=== PATIENT | male | born 1990 | race Caucasian/White ===

== ENCOUNTER 2022-09-17 08:55 | Emergency (ER) | payer OTHER, SELFPAY ==
[2022-09-17 09:10] VITALS: BP 125/85; PULSE 85; RESP 14; TEMP 36.1; O2SAT 100
--- NOTE | 2022-09-17 09:13 | ED.URI ---
HPI - URI/Sore Throat General Chief Complaint: Upper Respiratory Infection Stated Complaint: tight chest cough Time Seen by Provider: 09/17/22 09:13 Source: patient and RN notes reviewed History of Present Illness HPI Narrative: Patient is a 31-year-old male who presents to the Urgent Care with complaints of a tight chest, cough and wheezing. Patient states it started last week, he got better for couple days and then worse again. Patient denies any fever, nausea, vomiting. Denies of any ill exposures. States that he had 2- COVID test at home. Patient has been taking DayQuil, NyQuil and D congestion. No other acute complaints. No acute distress noted. Patient aware of the plan of care. Some parts of this dictation were generated by voice recognition software and may contain typographical and/or grammatical inaccuracies. Related Data Home Medications Medication Instructions Recorded Confirmed bupropion HCl 150 mg 24 hr tablet, 150 mg PO DAILY 09/17/22 09/17/22 extended release meloxicam 15 mg tablet 15 mg PO DAILY 09/17/22 09/17/22 Allergies Allergy/AdvReac Type Severity Reaction Status Date / Time NSAIDS (Non-Steroidal AdvReac Intermediate Other Verified 09/17/22 09:18 Anti-Inflamma Review of Systems Review of Systems: CONSTITUTIONAL: Denies fever, chills, or sweats. EYES: Denies visual changes, redness, or discharge. ENT: Denies rhinorrhea, congestion, sore throat, or otalgia. CARDIOVASCULAR: Denies chest pain, palpitations, or edema. RESPIRATORY: Reports of cough, wheezing and chest tightness GASTROINTESTINAL: Denies abdominal pain, nausea, vomiting, or diarrhea. GENITOURINARY: Denies dysuria or hematuria. SKIN: Denies rash or itching. MUSCULOSKELETAL: Denies back pain, joint pain, or myalgia. NEUROLOGIC: Denies headache, numbness, or weakness. All other systems reviewed are negative, except as documented in HPI. PMFSH Comments At the time of my signature, I reviewed and agree with the nursing past medical, surgical, social, and family history. There is no relevant family history pertinent to the patient complaint. Exam Narrative: GENERAL: This is a well-nourished, well-developed patient, in no apparent distress. HEAD: normocephalic, atraumatic. EYES: PERRL. Sclera clear/white. Vision is grossly intact. EARS: External ears normal, auditory canals clear and without drainage, TMs normal without perforation. Hearing grossly intact. NOSE: External nose normal with no obvious nasal discharge, nares without redness, no rhinorrhea. THROAT: Mucous membranes moist, posterior pharynx clear. moderate postnasal drainage NECK: Neck supple CARDIOVASCULAR: Regular rate and rhythm without murmurs, gallops, or rubs. RESPIRATORY: scant inspiratory wheezes with expiratory wheezes throughout SKIN: warm, intact with no suspicious lesions or rash, good texture and turgor. NEURO: awake, alert, and oriented to person, place and time. There were no obvious focal neurologic abnormalities. EXTREMITIES: No clubbing, cyanosis, or edema Course Course Level of Care: Express Care Visit Vital Signs Vital signs: Vital Signs Temperature 97.0 F L 09/17/22 09:10 Pulse Rate 85 09/17/22 09:10 Respiratory Rate 14 09/17/22 09:10 Blood Pressure 125/85 09/17/22 09:10 Pulse Oximetry 100 09/17/22 09:10 Oxygen Delivery Room Air 09/17/22 09:10 Temperature 97.0 F L 09/17/22 09:10 Pulse Rate 85 09/17/22 09:10 Respiratory Rate 14 09/17/22 09:10 Blood Pressure 125/85 09/17/22 09:10 Pulse Oximetry 100 09/17/22 09:10 Oxygen Delivery Room Air 09/17/22 09:10 reviewed MDM - URI/Sore Throat MDM Narrative Medical decision making narrative: advised the patient to complete the steroid regimen as prescribed. Be sure to eat and drink with medication. Use your inhaler as needed for shortness of breath or wheezing. Use Benadryl prior to bedtime and a daily antihistamine such as Zyrtec or Clariti
== END 2022-09-17 09:30 | disposition home or self-care (01) ==
PROVIDERS: Emergency Provider Nurse Practitioner Family; PCP Family Medicine
DX: J40 Bronchitis, not specified as acute or chronic (principal); Z79.1 Long term (current) use of non-steroidal anti-inflammatories (NSAID)
CPT/HCPCS: 99213; G0463

== ENCOUNTER 2022-12-11 08:03 | Emergency (ER) | payer OTHER, SELFPAY ==
--- NOTE | 2022-12-11 08:10 | ED.SKABFB ---
HPI - Skin/Abscess/Foreign Bdy General Chief complaint: Skin/Abscess/Foreign Body Stated complaint: Rash Time Seen by Provider: 12/11/22 08:10 Source: patient and RN notes reviewed History of Present Illness HPI narrative: Patient is a 32-year-old male who presents to urgent care with complaints of a rash. Patient states that he was changing a light bulb a couple nights ago and believes his rash developed from the insulation. Patient states he is using Aquaphor, taking hot showers your nonsense and soap, and symptoms not relieved. Patient was not wearing gloves and states that the insulation came falling out of the ceiling. No other acute complaints. No acute distress noted. Patient aware of the plan of care. Some parts of this dictation were generated by voice recognition software and may contain typographical and/or grammatical inaccuracies. Related Data Home Medications Medication Instructions Recorded Confirmed bupropion HCl 150 mg 24 hr tablet, 150 mg PO DAILY 09/17/22 12/11/22 extended release meloxicam 15 mg tablet 15 mg PO DAILY 09/17/22 12/11/22 Allergies Allergy/AdvReac Type Severity Reaction Status Date / Time NSAIDS (Non-Steroidal AdvReac Intermediate Other Verified 09/17/22 15:21 Anti-Inflamma Review of Systems Review of Systems: CONSTITUTIONAL: Denies fever, chills, or sweats. EYES: Denies visual changes, redness, or discharge. ENT: Denies rhinorrhea, congestion, sore throat, or otalgia. CARDIOVASCULAR: Denies chest pain, palpitations, or edema. RESPIRATORY: Denies cough or dyspnea. GASTROINTESTINAL: Denies abdominal pain, nausea, vomiting, or diarrhea. GENITOURINARY: Denies dysuria or hematuria. SKIN: Reports of itchy red rash to the knees, behind the ears, bilateral upper extremities MUSCULOSKELETAL: Denies back pain, joint pain, or myalgia. NEUROLOGIC: Denies headache, numbness, or weakness. All other systems reviewed are negative, except as documented in HPI. PMFSH Comments At the time of my signature, I reviewed and agree with the nursing past medical, surgical, social, and family history. There is no relevant family history pertinent to the patient complaint. Exam Narrative: GENERAL: This is a well-nourished, well-developed patient, in no apparent distress. HEAD: normocephalic, atraumatic. EYES: PERRL. Sclera clear/white. Vision is grossly intact. EARS: External ears normal NOSE: External nose normal with no obvious nasal discharge, nares without redness, no rhinorrhea. THROAT: Mucous membranes moist NECK: Neck supple SKIN: Erythema raised papular dermatitis noted to bilateral knees, behind the ears, bilateral hands and scattered to bilateral upper extremities NEURO: awake, alert, and oriented to person, place and time. There were no obvious focal neurologic abnormalities. EXTREMITIES: No clubbing, cyanosis, or edema. Course Course Level of Care: Express Care Visit Vital Signs Vital signs: Vital Signs Temperature 98.2 F 12/11/22 08:12 Pulse Rate 91 12/11/22 08:12 Respiratory Rate 16 12/11/22 08:12 Blood Pressure 125/78 12/11/22 08:12 Pulse Oximetry 99 12/11/22 08:12 Oxygen Delivery Room Air 12/11/22 08:12 Temperature 98.2 F 12/11/22 08:14 Pulse Rate 91 12/11/22 08:14 Respiratory Rate 16 12/11/22 08:14 Blood Pressure 125/78 12/11/22 08:14 Pulse Oximetry 99 12/11/22 08:14 Oxygen Delivery Room Air 12/11/22 08:14 Reviewed MDM - Skin/Abscess/Foreign Bdy MDM Narrative Medical decision making narrative: Advised patient to take Benadryl and/or daily Claritin/Zyrtec for itch relief. Try not to scratch the areas. Use the prescription cream to the affected areas avoiding near the groin, eyes and under arms. It may take several days for the rash to clear. Be aware that hot showers will exacerbate the rash. May continue Aquaphor or non scented cream/lotions to the area to help soothe. Follow-up with your PCP within 2-5 days or for worse
[2022-12-11 08:12] VITALS: BP 125/78; PULSE 91; RESP 16; TEMP 36.8; O2SAT 99
[2022-12-11 08:14] VITALS: BP 125/78; PULSE 91; RESP 16; TEMP 36.8; O2SAT 99
== END 2022-12-11 08:36 | disposition home or self-care (01) ==
PROVIDERS: Emergency Provider Nurse Practitioner Family; PCP Family Medicine
DX: L23.89 Allergic contact dermatitis due to other agents (principal); F41.9 Anxiety disorder, unspecified; F32.A Depression, unspecified
CPT/HCPCS: 99213; G0463

== ENCOUNTER 2023-01-01 08:54 | Emergency (ER) | payer OTHER, SELFPAY ==
--- NOTE | 2023-01-01 08:58 | ED.URI ---
HPI - URI/Sore Throat General Chief Complaint: Upper Respiratory Infection Stated Complaint: sinus infection Time Seen by Provider: 01/01/23 08:58 Source: patient and RN notes reviewed History of Present Illness HPI Narrative: Patient is a 32-year-old male who presents to the Urgent Care with complaints of possible sinus infection. Patient states he believes he may have had RSV in October because ?his friends kids had it?. Patient was never diagnosed with RSV. Patient states that he now has right ear pain, headache and sinus pressure for a week. Patient has been using his 's albuterol inhaler, taking Mucinex and using Tylenol. Denies any recent fevers. States he has had a history of ear infections. No other acute complaints. No acute distress. Patient aware of the plan of care. Some parts of this dictation were generated by voice recognition software and may contain typographical and/or grammatical inaccuracies. Related Data Home Medications Medication Instructions Recorded Confirmed bupropion HCl 150 mg 24 hr tablet, 150 mg PO DAILY 09/17/22 01/01/23 extended release Allergies Allergy/AdvReac Type Severity Reaction Status Date / Time NSAIDS (Non-Steroidal AdvReac Intermediate Other Verified 01/01/23 09:14 Anti-Inflamma Review of Systems Review of Systems: CONSTITUTIONAL: Denies fever, chills, or sweats. EYES: Denies visual changes, redness, or discharge. ENT: Reports sinus pressure, right otalgia, postnasal drainage CARDIOVASCULAR: Denies chest pain, palpitations, or edema. RESPIRATORY: Reports of cough without dyspnea GASTROINTESTINAL: Denies abdominal pain, nausea, vomiting, or diarrhea. GENITOURINARY: Denies dysuria or hematuria. SKIN: Denies rash or itching. MUSCULOSKELETAL: Denies back pain, joint pain, or myalgia. NEUROLOGIC: Denies headache, numbness, or weakness. All other systems reviewed are negative, except as documented in HPI. PMFSH Comments At the time of my signature, I reviewed and agree with the nursing past medical, surgical, social, and family history. There is no relevant family history pertinent to the patient complaint. Exam Narrative: GENERAL: This is a well-nourished, well-developed patient, in no apparent distress. HEAD: normocephalic, atraumatic. Frontal sinus tenderness EYES: PERRL. Sclera clear/white. Vision is grossly intact. EARS: External ears normal, auditory canals clear and without drainage, moderately if used slightly retracted bilateral TMs. Hearing grossly intact. NOSE: External nose normal with no obvious nasal discharge, nares without redness, no rhinorrhea. THROAT: Mucous membranes moist, posterior pharynx clear. Moderate postnasal drainage NECK: Neck supple, non-tender without lymphadenopathy CARDIOVASCULAR: Regular rate and rhythm without murmurs, gallops, or rubs. RESPIRATORY: Clear to auscultation. Breath sounds equal bilaterally. No wheezes, rales, or rhonchi. SKIN: warm, intact with no suspicious lesions or rash, good texture and turgor. NEURO: awake, alert, and oriented to person, place and time. There were no obvious focal neurologic abnormalities. EXTREMITIES: No clubbing, cyanosis, or edema. Course Course Level of Care: Express Care Visit Vital Signs Vital signs: Vital Signs Temperature 98.6 F 01/01/23 09:03 Pulse Rate 80 01/01/23 09:03 Respiratory Rate 16 01/01/23 09:03 Blood Pressure 118/77 01/01/23 09:03 Pulse Oximetry 100 01/01/23 09:03 Oxygen Delivery Room Air 01/01/23 09:03 Temperature 98.6 F 01/01/23 09:03 Pulse Rate 80 01/01/23 09:03 Respiratory Rate 16 01/01/23 09:03 Blood Pressure 118/77 01/01/23 09:03 Pulse Oximetry 100 01/01/23 09:03 Oxygen Delivery Room Air 01/01/23 09:03 Reviewed MDM - URI/Sore Throat MDM Narrative Medical decision making narrative: Advised patient complete the oral antibiotic regimen as prescribed. Be sure to eat drink with medication. Use Tylenol/ibuprof
[2023-01-01 09:03] VITALS: BP 118/77; PULSE 80; RESP 16; TEMP 37; O2SAT 100
== END 2023-01-01 09:50 | disposition home or self-care (01) ==
PROVIDERS: Emergency Provider Nurse Practitioner Family; PCP Family Medicine
DX: H66.93 Otitis media, unspecified, bilateral (principal); F41.9 Anxiety disorder, unspecified; F32.A Depression, unspecified
CPT/HCPCS: 99213; G0463

== ENCOUNTER 2023-10-13 11:50 | Emergency (ER) | payer OTHER, SELFPAY ==
--- NOTE | 2023-10-13 11:53 | ED.URI ---
HPI - URI/Sore Throat General Chief Complaint: Upper Respiratory Infection Stated Complaint: Headache/Sinus Time Seen by Provider: 10/13/23 12:22 Source: patient and RN notes reviewed Mode of arrival: ambulatory Limitations: no limitations History of Present Illness HPI Narrative: 32-year-old male presents concern for sinus pain, pressure on the left side for 6 days. Reports he had COVID 3 weeks ago, most the symptoms resolved but continues to have sinus now has pain. He reports he has been taking [id number] medications like Tylenol and 3rd days. He reports cough is improving. MD elicited complaint: nasal congestion and sinus pain Related Data Allergies Allergy/AdvReac Type Severity Reaction Status Date / Time NSAIDS (Non-Steroidal AdvReac Intermediate Other Verified 01/01/23 09:14 Anti-Inflamma Review of Systems Review of Systems: CONSTITUTIONAL: Denies malaise, chills, sweats, or fever. EYES: Denies visual changes, redness, or discharge. ENT: Reports rhinorrhea, congestion, sinus pain, otalgia CARDIOVASCULAR: Denies chest pain, palpitations, or edema. RESPIRATORY: Reports improving cough. Denies dyspnea. GASTROINTESTINAL: Denies abdominal pain, nausea, vomiting, diarrhea SKIN: Denies rash or itching. MUSCULOSKELETAL: Denies myalgia. NEUROLOGIC: Denies headache. All systems reviewed & are unremarkable except as noted in HPI and below PMFSH Comments At time of signature, agree with nursing past medical, surgical, social and family history. There is no relevant family history pertinent to the presenting complaint Exam Narrative: GENERAL: Nontoxic-appearing and in no acute distress. HEAD: Normocephalic EYES: PERRLA, conjunctivae clear ENT: Nares clear, turbinates edematous and erythematous, left-sided sinus tenderness. Mucous membranes moist. TM pearly espino with dull light reflex bilaterally; no tragal tenderness. Oropharynx not erythematous without lesions. Tonsils not enlarged and without exudate, no drooling, no hoarseness, no trismus, uvula midline. NECK: Supple. No lymphadenopathy CHEST: Clear to auscultation, breath sounds equal. No wheezing, rhonchi, rales, or stridor. No respiratory distress, speaks in full sentences. HEART: Regular rate and rhythm. No murmur heard. SKIN: Warm, dry, no rash. NEURO: Alert and oriented x3. PSYCH: Normal mood and affect Course Course Emergency Course: Patient is aware of diagnosis, understands and agrees to treatment plan. Anticipatory guidance given. Patient agrees to follow-up as directed and is aware of reasons to seek care at the emergency department. Portions of this record may have been created with voice recognition software Level of Care: Express Care Visit Vital Signs Vital signs: Reviewed. MDM - URI/Sore Throat MDM Narrative Medical decision making narrative: Differential diagnosis considered: Elder virus, strep pharyngitis, allergic rhinitis, upper respiratory tract infection, sinusitis, rhinosinusitis, nasopharyngitis. viral pharyngitis, otitis media, otitis externa, pneumonia, bronchitis, viral cough syndrome, viral syndrome, and influenza. Exam findings show no acute concerns or changes; patient is non-toxic appearing and is in no distress. Patient is appropriate for outpatient treatment and follow-up. Lab Data Attestation: I reviewed the patient's lab results. Critical Care Time Critical Care Time Critical Care Time: No Discharge Plan Discharge Clinical Impression: Sinusitis Patient Disposition: Home, Self-Care Condition: Stable Instructions: Antibiotic Form, Sinusitis (ED) Additional Instructions: Take medications as prescribed Nonprescription pain medications, such as acetaminophen (eg, Tylenol) or ibuprofen (eg, Motrin, Advil), are recommended for pain. Flushing the nose and sinuses with a saline solution several times per day has been proven to decrease pain associated with congestion and shorten the duration of sy
[2023-10-13 11:54] VITALS: BP 145/87; PULSE 99; RESP 16; TEMP 36.8; O2SAT 100
== END 2023-10-13 12:31 | disposition home or self-care (01) ==
PROVIDERS: Emergency Provider Nurse Practitioner; PCP Family Medicine
DX: J32.9 Chronic sinusitis, unspecified (principal)
CPT/HCPCS: 99213; G0463

== ENCOUNTER 2024-01-09 08:35 | Emergency (ER) | payer OTHER, SELFPAY ==
[2024-01-09 08:39] VITALS: BP 139/82; PULSE 106; RESP 18; TEMP 36; O2SAT 99
[2024-01-09 08:43] VITALS: BP 139/82; PULSE 106; RESP 18; TEMP 36; O2SAT 99
--- NOTE | 2024-01-09 08:53 | ED.URI ---
HPI - URI/Sore Throat General Chief Complaint: Upper Respiratory Infection Stated Complaint: poss sinus infection Time Seen by Provider: 01/09/24 08:54 Source: patient Mode of arrival: ambulatory Limitations: no limitations History of Present Illness HPI Narrative: 33 yo M presents presents with c/o nasal congestion, intermittent sinus pressure, postnasal drainage, intermittent sore throats and coughing for the past 2 weeks. On a taking [id number] sinus medications with little relief. Reports pressure worse today. Afebrile. Has taken to at home COVID test that were negative. All systems reviewed and negative except as noted above. Related Data Allergies Allergy/AdvReac Type Severity Reaction Status Date / Time NSAIDS (Non-Steroidal AdvReac Intermediate Other Verified 01/01/23 09:14 Anti-Inflamma Review of Systems Review of Systems: CONSTITUTIONAL: Denies fever, chills, or sweats. Reports fatigue. EYES: Denies visual changes, redness, or discharge. ENT: Reports rhinorrhea, congestion, sinus pressure, postnasal drainage. Denies sore throat, or otalgia. CARDIOVASCULAR: Denies chest pain, palpitations, or edema. RESPIRATORY: Reports cough. Denies dyspnea. GASTROINTESTINAL: Denies abdominal pain, nausea, vomiting, or diarrhea. GENITOURINARY: Denies dysuria or hematuria. SKIN: Denies rash or itching. MUSCULOSKELETAL: Denies back pain, joint pain, or myalgia. NEUROLOGIC: Denies headache, numbness, or weakness. PSYCHIATRIC: Denies anxiety or depression. All other systems reviewed are negative, except as documented in HPI. PMFSH Comments At time of signature, agree with nursing past medical, surgical, social and family history. There is no relevant family history pertinent to the presenting complaint. Exam Narrative: GENERAL: This is a well-nourished, well-developed patient, in no apparent distress. HEAD: normocephalic, atraumatic. EYES: PERRL. Sclera clear/white. Vision is grossly intact. EARS: External ears normal, auditory canals clear and without drainage, TMs normal without perforation. Hearing grossly intact. NOSE: External nose normal with purulent nasal drainage, erythema and swelling to bilateral nares. Maxillary sinus tenderness on palpation bilaterally. THROAT: Mucous membranes moist, erythema with postnasal drainage NECK: Neck supple, non-tender without lymphadenopathy, masses or thyromegaly. CARDIOVASCULAR: Regular rate and rhythm without murmurs, gallops, or rubs. RESPIRATORY: Clear to auscultation. Breath sounds equal bilaterally. No wheezes, rales, or rhonchi. SKIN: warm, Dry, intact with no suspicious lesions or rash, good texture and turgor. NEURO: awake, alert, and oriented to person, place and time. There were no obvious focal neurologic abnormalities. EXTREMITIES: No joint tenderness, effusion, or edema noted. Course Course Level of Care: Express Care Visit Vital Signs Vital signs: Vital Signs Temperature 36.0 C L 01/09/24 08:39 Pulse Rate 106 H 01/09/24 08:39 Respiratory Rate 18 01/09/24 08:39 Blood Pressure 139/82 01/09/24 08:39 Pulse Oximetry 99 01/09/24 08:39 Oxygen Delivery Room Air 01/09/24 08:39 Temperature 36.0 C L 01/09/24 08:43 Pulse Rate 106 H 01/09/24 08:43 Respiratory Rate 18 01/09/24 08:43 Blood Pressure 139/82 01/09/24 08:43 Pulse Oximetry 99 01/09/24 08:43 Oxygen Delivery Room Air 01/09/24 08:43 Reviewed MDM - URI/Sore Throat MDM Narrative Medical decision making narrative: Patient is aware of diagnosis, understands and agrees to treatment plan. Anticipatory guidance given. Patient agrees to follow-up as directed and is aware of reasons to seek care at the emergency department. Portions of this record may have been created with voice recognition software Will treat patient for bacterial sinusitis due to duration of symptoms and exam findings. Differential Diagnosis Differential diagnosis: Likely sinusitis
== END 2024-01-09 09:08 | disposition home or self-care (01) ==
PROVIDERS: Emergency Provider Nurse Practitioner Family; PCP Family Medicine
DX: J01.90 Acute sinusitis, unspecified (principal)
CPT/HCPCS: 99213; G0463